=== PATIENT | female | born 1950 | race Caucasian/White ===

== ENCOUNTER → 2016-08-05 | Outpatient (CLI) | payer MEDICARE ==
[~2016-08-05] MED LIST: ALDACTONE100 MG PO; CORGARD DPS20 MG PO; LACTULOSE20 GM/30 M PO; LASIX DPS80 MG PO; LEVEMIR100 UNIT/1 SQ; NAMENDA10 MG PO; NORCO 5-325 TA1 EACH PO; NOVOLOG100 UNIT/2 SQ; POTASSIUM CHLO20 ME2 PO; PROTONIX40 MG PO; PROVENTIL HFA6.7 GM IH; PROZAC DPS20 MG PO; SYMBICORT160 MCG/6 IH
== END | disposition home or self-care (01) ==
LOC: RAD.S 09:00
DX: E05.90 Thyrotoxicosis, unspecified without thyrotoxic crisis or storm (principal)

== ENCOUNTER 2016-11-02 12:33 | Day surgery (SDC) | payer MEDICARE | END 2016-11-02 15:00 | disposition home or self-care (01) | LOC: RAD.S 12:33 → EDSTATUS 14:00 → RAD.S 15:00 | PROC: 0W9G3ZZ Drainage of Peritoneal Cavity, Percutaneous Approach (ICD-10-PCS; principal; 2016-11-02) | DX: R18.8 Other ascites (principal); K76.9 Liver disease, unspecified ==